=== PATIENT | female | born 1980 ===

== ENCOUNTER 2024-02-03 00:54 | Emergency (ER) | payer MEDICARE, OTHER, SELFPAY ==
[2024-02-03] VITALS (7 sets, daily range): BP systolic 104–148; BP diastolic 75–91; BMI 23.5
--- NOTE | 2024-02-03 01:14 | ED.GENMED ---
History of Present Illness
<LAVONNE Hall - Last Filed: 02/04/24 04:12>
General
Chief Complaint: Back Pain
Source: patient
Exam Limitations: none
Time Seen by Provider: 02/03/24 01:02
History of Present Illness
History of Present Illness:
This is a 43 year old female that comes in with c/o back and abd pain. States that she started with lower back pain today. States that it is on both sided and it has progressed throughout the day. States that the pain is wrapping around to the abd.
States that she is nauseated and has vomited. States that she also has a headache. States that she took a flexeril at 11pm and she also takes Oxycodone QID with her last dose at 4pm. Denies any fever, chills, chest pain, SOB, diarrhea, dizziness,
urinary burning.
Past History
<LAVONNE Hall - Last Filed: 02/04/24 04:12>
Past History
ED Past Medical History: Psychiatric (Anxiety, Depression, PTSD) and Other (Migraines, Interstitial Cystitis)
ED Past Surgical History: Other (abdominal plasty)
Social History
Tobacco: Former smoker
Alcohol: None
Personal:
Living: with family
Review of Systems
<LAVONNE Hall - Last Filed: 02/04/24 04:12>
Review of Systems
All Other Systems: ROS reviewed and negative except as documented in HPI and ROS
Constitutional: Reports no symptoms; Denies fever or chills
EENT: Reports no symptoms
Respiratory: Reports no symptoms; Denies cough or trouble breathing
Cardiac: Reports no symptoms; Denies chest pain
ABD/GI: Reports abdominal pain, nausea and vomiting; Denies diarrhea
: Reports no symptoms; Denies dysuria, frequency or urgency
Musculoskeletal: Reports back pain (Low back pain)
Skin: Reports no symptoms
Neurological: Reports headache; Denies dizzy
Psychiatric: Reports no symptoms
Phy Exam
<LAVONNE Hall - Last Filed: 02/04/24 04:12>
General Physical Exam
General Presentation: mild distress
General age: appears stated age
General Skin: warm and dry
General Habitus: normal
General Mental: alert
General Hydration: appears well hydrated
ENT Exam
ENT Exam: TM's normal, pharynx normal and neck supple
Eye Exam
Eye Exam: EOMI
Cardiovascular Exam
Cardiovascular Exam: regular rate/rhythm, no edema, no murmur and normal peripheral pulses
Pulmonary Exam
Pulmonary Exam: lungs clear, no respiratory distress, no rales, chest non tender, no crackles, no rhonchi, no wheezing and no cough
Gastrointestinal Exam
Gastrointestinal Exam: normal bowel sounds, non tender, soft, no organomegaly, no pulsatile mass and non distended
Musculoskeletal Exam
Musculoskeletal Exam: full ROM, no edema and other (Negative for pain with palpation over the spine and lateral to the spine. negative pain with straight let raise, Going up on her toes. Turning sided to side and bending forward )
Skin Exam
Skin Exam: normal color, warm/dry, no rash and no petechia
Psychiatric Exam
Psychiatric Exam: normal mood/affect
Course
<LAVONNE Hall - Last Filed: 02/04/24 04:12>
Orders/Labs/Results
Orders:
Orders
02/03/24 01:13
Acetaminophen [Tylenol] 1,000 mg PO NOW STA
Ketorolac [Toradol] 30 mg IV NOW STA
Test Result ONCE
02/03/24 01:52
Complete Blood Count/With Diff Urgent
Comprehensive Metabolic Panel Urgent
HCG, Serum Qualitative Screen Urgent
Urinalysis Reflex To Culture Urgent
Date Specimen was Collected: 02/03/24
Time Specimen was Collected: 01:39
02/03/24 02:29
CT Abd/pel W Iv And Oral Contr Urgent
Comment:
Reason For Exam: right sided abd pain
Dicyclomine HCl [Bentyl] 20 mg IM NOW STA
Iohexol [Omnipaque] See Protocol PO NOW STA
02/03/24 04:31
Morphine Sulfate 4 mg IV NOW STA
Abnormal Lab Results
02/03/24
01:52
MPV 10.9 H fL
(7.4-10.4)
Absolute Lymphs (auto) 3.6 H 10^3/uL
(1.2-3.4)
Chloride 110 H mmol/L
(98-107)
Carbon Dioxide 21 L mmol/L
(22-30)
BUN 22 H mg/dl
(7-17)
02/03/24 01:52
02/03/24 01:52
Chloride slightly elevated. Carbon dioxide slightly low. Dehydration. Urine negative for infection.
Vital Signs
Initial and Last Documented VS:
Initial Vital Signs
Pulse Resp BP Pulse Ox
79 18 148/91 100
02/03/24 00:57 02/03/24 00:57 02/03/24 00:57 02/03/24 00:57
Last Documented Vital Signs
Temp Pulse Resp BP Pulse Ox
97.8 F 57 18 125/82 99
02/03/24 04:59 02/03/24 04:59 02/03/24 04:59 02/03/24 06:00 02/03/24 06:30
<Sera Obrien, - Last Filed: 02/03/24 06:25>
Orders/Labs/Results
Orders:
Orders
02/03/24 01:13
Acetaminophen [Tylenol] 1,000 mg PO NOW STA
Ketorolac [Toradol] 30 mg IV NOW STA
Test Result ONCE
02/03/24 01:52
Complete Blood Count/With Diff Urgent
Comprehensive Metabolic Panel Urgent
HCG, Serum Qualitative Screen Urgent
Urinalysis Reflex To Culture Urgent
Date Specimen was Collected: 02/03/24
Time Specimen was Collected: 01:39
02/03/24 02:29
CT Abd/pel W Iv And Oral Contr Urgent
Comment:
Reason For Exam: right sided abd pain
Dicyclomine HCl [Bentyl] 20 mg IM NOW STA
Iohexol [Omnipaque] See Protocol PO NOW STA
02/03/24 04:31
Morphine Sulfate 4 mg IV NOW STA
Abnormal Lab Results
02/03/24
01:52
MPV 10.9 H fL
(7.4-10.4)
Absolute Lymphs (auto) 3.6 H 10^3/uL
(1.2-3.4)
Chloride 110 H mmol/L
(98-107)
Carbon Dioxide 21 L mmol/L
(22-30)
BUN 22 H mg/dl
(7-17)
02/03/24 01:52
02/03/24 01:52
Vital Signs
Initial and Last Documented VS:
Initial Vital Signs
Pulse Resp BP Pulse Ox
79 18 148/91 100
02/03/24 00:57 02/03/24 00:57 02/03/24 00:57 02/03/24 00:57
Last Documented Vital Signs
Temp Pulse Resp BP Pulse Ox
97.8 F 57 18 125/82 99
02/03/24 04:59 02/03/24 04:59 02/03/24 04:59 02/03/24 06:00 02/03/24 06:30
<LAVONNE Hall - Last Filed: 02/04/24 04:12>
MDM/Problems Addressed
Differential Diagnosis Includes:
Musculoskeletal pain. UTI, Renal calculus
MDM/Problems Addressed:
This is a 43 year old female that comes in with c/o low back pain that wraps around to the abd. States that this started today and is getting worse.
Will check lab, Urine and medicate for pain. If urine positive for blood will get CT scan.
Back into see patient. Patient is very uncomfortable still. Explained that her urine is negative for infection and there is no blood. Blood work shows Dehydration. Patient states that her pain in on the right sided and it feels deep. Will get CT.
Will given Bentyl to help with pain. If normal will discharge patient home.
Chronic conditions affecting care:
NA
Acute Exacerbation and/or Progression of Chronic Illness:
NA
<LAVONNE Hall - Last Filed: 02/04/24 04:12>
*Radiology
Radiology exam reviewed: radiology read reviewed (CT-No significant acute abnormality identified in the abdomen or pelvis, as described above. Normal appendix. No urinary calculi or hydronephrosis. )
*Pulse Oximetry
Patient hypoxic: no
*EKG
Interpreted by ED Provider?: NA
Rate: EKG- N/A
*Internist Interpretation
Rate: Internist- N/A
*Critical Care Note
Total Time (30-74mins, 75-104mins- exclusive of procedures): Not Applicable
ED Attending Note
<LAVONNE Hall - Last Filed: 02/04/24 04:12>
-
Portions of this chart may have been created with voice recognition software.� Occasional wrong word or��sound alike� substitutions may have occurred due to the inherent limitations of voice recognition software.
<Sera Obrien DO - Last Filed: 02/03/24 06:25>
ED Attending Note
Patient seen and examined by attending physician: Yes
I performed the substantive portion of visit, reviewed & personally made and approve the management plan that is documented in note by myself or KARIE.: Yes
I performed a history and physical exam of patient and discussed management with resident, I reviewed resident's note and agree with documented findings and plan of care.: Yes
ED Attending Note:
Patient seen and examined at bedside, 43-year-old female presenting to the emergency department for back pain. Patient reports that pain radiates to the abdomen. Pain started today with associated nausea and vomiting. She denies any fever or
significant abdominal surgeries. Vital signs on arrival are normal.
On examination, patient in no acute distress. No CVA tenderness. Generalized tenderness to the lower abdomen. Patient initially seen and evaluated by nurse practitioner with laboratory analysis and urinalysis obtained. Normal laboratory analysis
without leukocytosis. Urinalysis without sign of infection, no RBCs, with lower suspicion for kidney stone. However, patient's pain persists. For this reason, decision made to proceed with CT imaging IV and oral contrast. Patient pending imaging
06:20 -CT without acute findings. Notes some distention to the gallbladder without stones. No focal tenderness to the right upper quadrant. Patient notes that her pain is lower in quality. No lateralizing tenderness without concern for ovarian
pathology. On reassessment, patient does report that her symptoms are improved. Notes that her last bowel movement was 2 days ago, possible gas related pain versus musculoskeletal pain. Advised continued supportive therapy with Tylenol or Motrin.
Remains hemodynamically stable. Return precautions discussed and patient verbalized understanding
Discharge Plan
Departure
Patient Disposition: Home (Routine Discharge)
Date of Disposition: 02/03/24
Time of Disposition: 06:25
Patient with high blood pressure during this ER visit?: No
Condition: Good
Covid-19: Not Applicable
Discharge Problem:
Abdominal pain
Instructions: Abdominal Pain, Adult ED
Prescriptions:
New
ibuprofen 600 mg tablet
600 mg PO Q8H PRN (Reason: Pain) Qty: 20 0RF
No Action
carisoprodol 350 mg Tablet
350 mg PO HS
alprazolam [Xanax] 0.25 mg Tablet
0.25 mg PO BID PRN (Reason: panic attacks)
oxycodone 5 mg Tablet
5 mg PO Q6H PRN (Reason: pain)
pregabalin 82.5 mg Tablet Extended Release 24 Hr
82.5 mg PO QPM
Referrals:
Hardy Rios CRNP [Family Provider] - Follow up in 2-3 days
Activity Restrictions/Additional Instructions:
You were seen in the emergency department for abdominal pain
You had normal laboratory analysis and CT imaging of your abdomen
Please follow-up closely with your primary care physician.
Return to the emergency department for any worsening of your symptoms, or any development of chest pain, difficulty breathing, abdominal pain with persistent vomiting and inability to tolerate food or liquid by mouth (concern for dehydration),
weakness, headache or confusion, fever greater than 100.4, or any additional symptoms that are concerning to you.
Thank you for choosing [facility].
Interventions
Interventions:
*Risk Screen - Suicide Last Done: 02/03/24 01:56
*General Assessment Last Done: 02/03/24 01:56
*Neglect/Abuse Screening Last Done: 02/03/24 01:56
ED- Fall Risk Assessment Last Done: 02/03/24 06:40
*ED COVID-19 Vaccine History Last Done: 02/03/24 01:56
*Nursing Disposition Last Done: 02/03/24 06:40
ED-Musculoskeletal Assessment Last Done: 02/03/24 01:58
Discharge Date and Time
Discharge Date/Time: 02/03/24 06:45
Print Language: SAUDI ARABIAN
[2024-02-03] MEDS: TYLENOL 1000 MG PO (01:48)
[2024-02-03] MEDS: TORADOL 30 MG IV (01:49)
[2024-02-03 02:10] LABS: % Basophils 0.6 % (0-2); % Eosinophils 1.7 % (0-6); % Immature Granulocytes 0.3 % (0-0.5); % Lymphocytes 34.1 % (20.5-51.1); % Monocytes 5.3 % (1.7-9.3); Absolute Basophils 0.1 10^3/uL (0-0.2); Absolute Eosinophils 0.2 10^3/uL (0-0.7); Absolute Lymphocytes 3.6 10^3/uL (1.2-3.4); Absolute Monocytes 0.6 10^3/uL (0.1-0.6); Absolute Neutrophils 6.2 10^3/uL (1.4-6.5); Hematocrit 37.1 % (37.0-47.0); Hemoglobin 13.3 g/dL (12.0-16.0); Mean Corp Hgb Conc. 35.8 g/dL (33.0-37.0); Mean Corpuscular Volume 86.5 fL (81.0-99.0); Mean Platelet Volume 10.9 fL (7.4-10.4); Nucleated Red Blood Cells % 0 %; Platelet Count 254 10^3/uL (130-400); Red Blood Cell Count 4.29 10^6/uL (4.20-5.40); Red Cell Dist. Width 13.4 % (11.5-14.5); White Blood Cell Count 10.7 10^3/uL (4.8-10.8)
[2024-02-03 02:13] LABS: Urine Albumin Negative (Neg - Trace); Urine Bilirubin Negative (Negative); Urine Character Clear (Clear); Urine Color Yellow; Urine Glucose Negative (Negative); Urine Ketone Negative (Negative); Urine Leukocyte Negative (Negative); Urine Nitrite Negative (Negative); Urine Occult Blood Negative (Negative); Urine Specific Gravity 1.015 (<1.030); Urine Urobilinogen Negative (Neg - 1+)
[2024-02-03 02:24] LABS: ALT (SGPT) 26 U/L (0-35); AST (SGOT) 23 U/L (14-36); Alkaline Phosphatase 49 U/L (38-126); Blood Urea Nitrogen 22 mg/dl (7-17); Carbon Dioxide 21 mmol/L (22-30); Chloride 110 mmol/L (98-107); Estimated Creatinine Clearance 61 ml/min; Glucose 91 mg/dl (70-99); Sodium 137 mmol/L (135-145); Total Bilirubin 0.3 mg/dl (0.2-1.3); Total Protein 6.4 g/dl (6.3-8.2); eGFR > 60.00
[2024-02-03 02:27] LABS: HCG, Serum Qualitative Screen Negative
[2024-02-03] MEDS: OMNIPAQUE 50 ML PO (02:38)
[2024-02-03] MEDS: BENTYL 20 MG IM (02:48)
[2024-02-03] MEDS: MORPHINE SULFATE 4 MG IV (04:35)
== END 2024-02-03 06:45 | disposition home or self-care (01) ==
LOC: EMR 00:54
PROVIDERS: Clinical Nurse Specialist Family Health; EMERGENCY PHYSICIAN Student in an Organized Health Care Education/Training Program; FAMILY PHYSICIAN Nurse Practitioner Family
DX: R10.9 Unspecified abdominal pain (principal); M54.50 Low back pain, unspecified; R11.2 Nausea with vomiting, unspecified; K82.8 Other specified diseases of gallbladder; E86.0 Dehydration; F32.A Depression, unspecified; F41.9 Anxiety disorder, unspecified; F43.10 Post-traumatic stress disorder, unspecified; G43.909 Migraine, unspecified, not intractable, without status migrainosus; Z87.891 Personal history of nicotine dependence; Z88.2 Allergy status to sulfonamides
CPT/HCPCS: 99285; 96375; 96372; 96374; 74177; 80053; 81003; 84703; 85025; Q9967